=== PATIENT | female | born 2005 | race Caucasian/White ===

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

== ENCOUNTER → 2025-01-20 | Outpatient (REF) ==
[2025-01-20 10:27] LABS: SOFIA COVID ANTIGEN POSITIVE (NEGATIVE)
== END ==
LOC: M EMP 08:52
PROVIDERS: ATTEND Family Medicine
DX: Z01.89 Encounter for other specified special examinations (principal)